=== PATIENT | male | born 1950 | race Hispanic/Latino ===

== ENCOUNTER 2017-07-26 06:35 | Emergency (ER) | payer OTHER ==
[2017-07-26] MEDS ORDERED: MORPHINE SULFATE 8 MG/ML VIAL ONE (07:29)
[2017-07-26] MEDS ORDERED: ONDANSETRON HCL 4 MG/2 ML VIAL ONE (07:29)
[2017-07-26 07:36] LABS: BASOPHILS % (AUTO) 0.3 % (0.0-5.0); EOSINOPHILS % (AUTO) 0.3 % (0.0-8.0); HEMATOCRIT 41.8 % (42-54); LYMPHOCYTES % (AUTO) 2.8 % (21.0-51.0); MEAN CORPUSCULAR HEMOGLOBIN 32.1 pg (27.0-33.0); MEAN CORPUSCULAR HGB CONC 34.4 g/dL (32.0-36.0); MEAN CORPUSCULAR VOLUME 93.4 fL (79-99); MONOCYTES % (AUTO) 6.5 % (3.0-13.0); NEUTROPHILS % (AUTO) 90.1 % (40.0-77.0); PLATELET COUNT (AUTO) 163 K/uL (130-400); RED BLOOD CELL COUNT(AUTO) 4.48 MIL/uL (4.50-6.20); RED CELL DISTRIBUTION WIDTH 12.9 % (11.0-15.5); WHITE BLOOD COUNT (AUTO) 14.8 K/uL (4.8-10.8)
[2017-07-26 07:37] LABS: APPEARANCE,URINE TURBID (CLEAR); BILIRUBIN,URINE NEGATIVE (NEGATIVE); COLOR,URINE YELLOW (YELLOW); GLUCOSE, URINE (UA) 250 mg/dL (NEGATIVE); KETONES,URINE NEGATIVE (NEGATIVE); LEUKOCYTE ESTERASE ,URINE LARGE (NEGATIVE); NITRATE,URINE POSITIVE (NEGATIVE); OCCULT BLOOD,URINE LARGE (NEGATIVE); PROTEIN,URINE 100 (NEGATIVE)
[2017-07-26 07:44] LABS: CREATININE 1.2 mg/dL (0.5-1.5); POTASSIUM 4.1 mmol/L (3.5-5.1)
[2017-07-26 07:45] LABS: BACTERIA,URINE Many /HPF (None Seen); SQUAMOUS EPITHELIAL CELL,UR Rare /LPF (0-2); WBC,URINE TNTC /HPF (0-1)
[2017-07-26 07:50] LABS: BILIRUBIN,TOTAL 2.7 mg/dL (0.2-1.0); TOTAL PROTEIN, SERUM 7.1 g/dL (6.0-8.3)
[2017-07-26] MEDS ORDERED: CEFTRIAXONE SODIUM 1 GM ONE (09:38)
== END 2017-07-26 10:12 | disposition home or self-care (01) ==
LOC: EDH 06:35
DX: N45.1 Epididymitis (principal); N39.0 Urinary tract infection, site not specified; I10 Essential (primary) hypertension; E78.5 Hyperlipidemia, unspecified; E11.9 Type 2 diabetes mellitus without complications; Z98.890 Other specified postprocedural states
CPT/HCPCS: 36415; 76870; 80053; 81001; 84484; 85025; 96374; 96375; 99285; J0696; J2270; J2405

== ENCOUNTER 2018-02-08 06:34 | Day surgery (SDC) | payer OTHER ==
[2018-02-07 11:32] LABS: EOSINOPHILS % (AUTO) 1.5 % (0.0-8.0); HEMATOCRIT 36.1 % (42-54); MEAN CORPUSCULAR HEMOGLOBIN 33.4 pg (27.0-33.0); MEAN CORPUSCULAR VOLUME 95.4 fL (79-99); MONOCYTES % (AUTO) 4.6 % (3.0-13.0); NEUTROPHILS % (AUTO) 80.9 % (40.0-77.0); NUCLEATED RED BLOOD CELLS 0.1 % (0.0-0.19); PLATELET COUNT (AUTO) 313 K/uL (130-400); RED BLOOD CELL COUNT(AUTO) 3.79 MIL/uL (4.50-6.20); RED CELL DISTRIBUTION WIDTH 12.2 % (11.0-15.5); WHITE BLOOD COUNT (AUTO) 8.4 K/uL (4.8-10.8)
[2018-02-07 11:39] LABS: CREATININE 1.5 mg/dL (0.5-1.5); POTASSIUM 4.2 mmol/L (3.5-5.1)
[2018-02-07 11:45] VITALS: BP 140/82
[2018-02-07 11:45] LABS: APPEARANCE,URINE Clear (CLEAR); BILIRUBIN,URINE Negative (NEGATIVE); COLOR,URINE Yellow (YELLOW); GLUCOSE, URINE (UA) Negative (NEGATIVE); KETONES,URINE Negative (NEGATIVE); LEUKOCYTE ESTERASE ,URINE Small (NEGATIVE); NITRATE,URINE Negative (NEGATIVE); OCCULT BLOOD,URINE Negative (NEGATIVE); PROTEIN,URINE POS 2+ (NEGATIVE)
[2018-02-07 11:50] LABS: RBC,URINE 0-1 /HPF (0-1)
[2018-02-07 11:51] LABS: BACTERIA,URINE Rare /HPF (None Seen); SQUAMOUS EPITHELIAL CELL,UR Few /HPF (0-2)
[~2018-02-08] VITALS: Ht 180.3 cm; Wt 90.4 kg
[2018-02-08] VITALS (16 sets, daily range): BP systolic 122–137; BP diastolic 73–87
[~2018-02-08 06:34] MED LIST: ASPI-555 PO; ATOR40TA71 PO; LOSA100T20 PO; METF-805 PO; PANT40TA25 PO; PIOG15TA66 PO; TAMS0.4C32 PO
[2018-02-08] MEDS ORDERED: SODIUM CHLORIDE 0.9% 1000ML 1,000 ML IV ONE (08:42)
[2018-02-08] MEDS ORDERED: LIDOCAINE PF 2% 5ML ABBOJECT ONE (09:07)
[2018-02-08] MEDS ORDERED: ROCURONIUM 10MG/1ML SYR 10 MG/ML ML ONE (09:07)
[2018-02-08] MEDS ORDERED: PROPOFOL 10 MG/ML 20ML VIAL IV ONE (09:07)
[2018-02-08] MEDS ORDERED: FENTANYL CITRATE PF 50 MCG/1 ML 2ML VIAL ONE ×2 (09:08→10:28)
[2018-02-08] MEDS ORDERED: PHENYLEPHRINE HCL 10 MG/ML 1ML VIAL IV ONE (09:35)
[2018-02-08] MEDS ORDERED: SODIUM CHLORIDE 0.9% 10 ML VIAL ONE (09:35)
[2018-02-08] MEDS ORDERED: HEPARIN SODIUM 1000UNIT/ML 10ML VIAL ONE (09:38)
[2018-02-08] MEDS ORDERED: CEFOXITIN SODIUM 1 GM VIAL ONE (09:44)
[2018-02-08] MEDS ORDERED: GLYCOPYRROLATE 1 MG/5 ML SYRINGE ONE (10:43)
[2018-02-08] MEDS ORDERED: MEPERIDINE-PF 25 MG/ML SYG ONE (11:28)
[2018-02-08] MEDS ORDERED: ACETAMINOPHEN-CODEINE 300/30MG TAB ONE (12:36)
== END 2018-02-08 13:25 | disposition home or self-care (01) ==
LOC: DAH 06:34
PROVIDERS: ATTEND Surgery
DX: K80.12 Calculus of gallbladder with acute and chronic cholecystitis without obstruction (principal); K66.0 Peritoneal adhesions (postprocedural) (postinfection); N40.1 Benign prostatic hyperplasia with lower urinary tract symptoms; I25.10 Atherosclerotic heart disease of native coronary artery without angina pectoris; E11.69 Type 2 diabetes mellitus with other specified complication; K76.0 Fatty (change of) liver, not elsewhere classified; E78.00 Pure hypercholesterolemia, unspecified; I13.10 Hypertensive heart and chronic kidney disease without heart failure, with stage 1 through stage 4 chronic kidney disease, or unspecified chronic kidney disease; E11.22 Type 2 diabetes mellitus with diabetic chronic kidney disease; N18.2 Chronic kidney disease, stage 2 (mild); E55.9 Vitamin D deficiency, unspecified; Z95.5 Presence of coronary angioplasty implant and graft; E66.3 Overweight; Z83.3 Family history of diabetes mellitus; Z79.84 Long term (current) use of oral hypoglycemic drugs; Z79.899 Other long term (current) drug therapy; Z98.890 Other specified postprocedural states; Z98.49 Cataract extraction status, unspecified eye
CPT/HCPCS: 36415; 47562; 80048; 81001; 82948 ×2; 85025; 88304; 93005; A4450; A4600; A4930; C1769 ×4; J0694; J1644; J2001; J2175; J2370; J2704; J3010 ×2; J3490; J7030 ×2; J7120

== ENCOUNTER → 2018-09-10 | Outpatient (CLI) | payer OTHER ==
[~2018-09-10] MED LIST changes: -LOSA100T20 PO; +LOSA100T58 PO
[2018-09-10 10:34] LABS: CREATININE 1.3 mg/dL (0.5-1.5); POTASSIUM 5.2 mmol/L (3.5-5.1)
== END | disposition home or self-care (01) ==
LOC: LAB 09:26
PROVIDERS: ATTEND Urology
DX: R31.29 Other microscopic hematuria (principal)
CPT/HCPCS: 36415; 80048

== ENCOUNTER → 2018-09-13 | Outpatient (CLI) | payer OTHER ==
[~2018-09-13] MED LIST changes: +IOHEXOL 350 MG/ML 100ML INFUS..BTL IV ONE
== END | disposition home or self-care (01) ==
LOC: RAH 07:51
PROVIDERS: ATTEND Urology
DX: I71.4 Abdominal aortic aneurysm, without rupture (principal); K80.20 Calculus of gallbladder without cholecystitis without obstruction; K40.90 Unilateral inguinal hernia, without obstruction or gangrene, not specified as recurrent; M47.815 Spondylosis without myelopathy or radiculopathy, thoracolumbar region; K44.9 Diaphragmatic hernia without obstruction or gangrene; N28.1 Cyst of kidney, acquired
CPT/HCPCS: 74178; Q9967

== ENCOUNTER → 2018-11-15 | Outpatient (CLI) | payer OTHER ==
[~2018-11-15] VITALS: Ht 180.3 cm; Wt 85.3 kg
[~2018-11-15] MED LIST changes: -IOHEXOL 350 MG/ML 100ML INFUS..BTL IV ONE; +REGADENOSON 0.4 MG/5 ML PF SYG IVP SCH
== END | disposition home or self-care (01) ==
LOC: SHCH 08:47
PROVIDERS: ATTEND Internal Medicine Cardiovascular Disease
DX: I25.10 Atherosclerotic heart disease of native coronary artery without angina pectoris (principal)
CPT/HCPCS: 78452; 93017; 96374; A9500 ×2; J2785

== ENCOUNTER 2020-06-12 23:26 | Inpatient (IN) | payer OTHER ==
[~2020-06-12] VITALS: Ht 177.8 cm; Wt 90.9 kg
[~2020-06-12 23:26] MED LIST changes: -ASPI-555 PO; +ASPI-556 PO; -METF-805 PO; +METF-890 PO; -PANT40TA25 PO; +PANT40TA54 PO; -REGADENOSON 0.4 MG/5 ML PF SYG IVP SCH
[2020-06-12] MEDS ORDERED: AZITHROMYCIN 500MG+NS 250ML 250 ML IV ONE (23:34)
[2020-06-12] MEDS ORDERED: CEFTRIAXONE 1G VIAL ONE (23:34)
[2020-06-12 23:54] LABS: BASOPHILS % (AUTO) 0.5 % (0.0-5.0); HEMATOCRIT 36.4 % (42-54); LYMPHOCYTES % (AUTO) 10.7 % (21.0-51.0); MEAN CORPUSCULAR HEMOGLOBIN 32.9 pg (27.0-33.0); MEAN CORPUSCULAR VOLUME 91.5 fL (79-99); MONOCYTES % (AUTO) 6.8 % (3.0-13.0); NEUTROPHILS % (AUTO) 76.4 % (40.0-77.0); PLATELET COUNT (AUTO) 188 K/uL (130-400); RED BLOOD CELL COUNT(AUTO) 3.98 MIL/uL (4.50-6.20); RED CELL DISTRIBUTION WIDTH 12.2 % (11.0-15.5); WHITE BLOOD COUNT (AUTO) 5.6 K/uL (4.8-10.8)
[2020-06-12 23:55] LABS: ABG HCO3 20.4 mmol/L (21.0-28.0); ABG OXYGEN SATURATION 88.1 % (95.0-99.0); ABG PCO2 32 mmHg (35-48)
[2020-06-13 00:05] LABS: INR 0.99 (0.85-1.15); PROTHROMBIN TIME 10.6 SEC (9.6-11.6)
[2020-06-13 00:06] LABS: CARBON DIOXIDE 25 mmol/L (21-32); CHLORIDE 102 mmol/L (101-111); CREATININE 1.3 mg/dL (0.5-1.5); GLOMERULAR FILTR. RATE CALC 58 mL/min (>60); GLUCOSE,RANDOM 143 mg/dL (70-105); PARTIAL THROMBOPLASTIN TIME 28.9 SEC (26.3-35.5); POTASSIUM 3.5 mmol/L (3.5-5.1); SODIUM SERUM 139 mmol/L (136-145); UREA NITROGEN, BLOOD 17 mg/dL (7-18)
[2020-06-13 00:16] LABS: ALANINE AMINOTRANSFERASE 49 U/L (12-78); ALBUMIN 2.7 g/dL (3.5-5.0); ASPARTATE AMINOTRANSFERASE 79 U/L (10-37); CREATINE KINASE, TOTAL 51 U/L (21-232); LIPASE 390 U/L (114-286); MYOGLOBIN 62 ng/mL (10-92); TOTAL PROTEIN, SERUM 7.6 g/dL (6.0-8.3); TROPONIN I < 0.04 ng/mL (0.00-0.06)
[2020-06-13] MEDS ORDERED: IOHEXOL-350 75 ML VIAL IV ONE (02:05)
[2020-06-13] MEDS ORDERED: DEXAMETHASONE SOD PHOSPHATE 10MG/ML 1ML VIAL ONE (02:10)
[2020-06-13 03:36] LABS: APPEARANCE,URINE Clear (CLEAR); BILIRUBIN,URINE Negative (NEGATIVE); COLOR,URINE Yellow (YELLOW); GLUCOSE, URINE (UA) Negative (NEGATIVE); KETONES,URINE Negative (NEGATIVE); LEUKOCYTE ESTERASE ,URINE Trace (NEGATIVE); NITRATE,URINE Negative (NEGATIVE); OCCULT BLOOD,URINE Negative (NEGATIVE); PROTEIN,URINE 300 mg/dL (NEGATIVE)
[2020-06-13 04:10] LABS: BACTERIA,URINE Rare /HPF (None Seen); HYALINE CASTS, URINE 0-1 /LPF (0-1 /LPF); RBC,URINE 0-1 /HPF (0-1); SQUAMOUS EPITHELIAL CELL,UR 0-2 /HPF (0-2); WBC,URINE 0-1 /HPF (0-1)
[2020-06-13] MEDS ORDERED: ACETAMINOPHEN 325 MG TAB PO PRN (04:15)
[2020-06-13] MEDS ORDERED: ONDANSETRON 4MG INJ IVP PRN (04:15)
[2020-06-13] MEDS ORDERED: DEXAMETHASONE 4 MG TAB ONE (08:17)
[2020-06-13] MEDS ORDERED: DEXAMETHASONE 4 MG TAB PO SCH (09:00)
[2020-06-13] MEDS ORDERED: CEFTRIAXONE 1G VIAL ONE (20:26)
[2020-06-13] MEDS ORDERED: AZITHROMYCIN 500MG+NS 250ML 250 ML IV ONE (20:26)
[2020-06-13] MEDS: AZITHROMYCIN 500MG+NS 250ML 250 ML IV SCH (21:00)
[2020-06-13] MEDS ORDERED: CEFTRIAXONE 1G VIAL IVP SCH (21:00)
[2020-06-14] MEDS ORDERED: DEXAMETHASONE SOD PHOSPHATE 10MG/ML 1ML VIAL ONE (07:45)
[2020-06-14] MEDS ORDERED: ACETAMINOPHEN 650 MG SUPPOSITORY RC PRN (08:15)
[2020-06-14] MEDS ORDERED: ACETAMINOPHEN 325 MG TAB PO PRN (08:15)
[2020-06-14] MEDS ORDERED: PHARMACY COMMUNICATION MISC SCH (08:15)
[2020-06-14] MEDS ORDERED: TRAMADOL HCL 50 MG TABLET PO PRN (08:15)
[2020-06-14] MEDS ORDERED: CLONIDINE HCL 0.1 MG TABLET PO PRN (08:15)
[2020-06-14] MEDS ORDERED: TEMAZEPAM 15 MG CAPSULE PO PRN (08:15)
[2020-06-14] MEDS ORDERED: ALBUTEROL INHALER 90MCG/INH IH PRN (08:15)
[2020-06-14] MEDS ORDERED: LABETALOL 20MG SYG IV PRN (08:15)
[2020-06-14] MEDS ORDERED: LACTULOSE 20 GM/30 ML UDCUP PO PRN (08:15)
[2020-06-14 08:39] LABS: HEMATOCRIT 31.3 % (42-54); MEAN CORPUSCULAR HEMOGLOBIN 32.7 pg (27.0-33.0); MEAN CORPUSCULAR HGB CONC 35.8 g/dL (32.0-36.0); MEAN CORPUSCULAR VOLUME 91.5 fL (79-99); RED BLOOD CELL COUNT(AUTO) 3.42 MIL/uL (4.50-6.20); RED CELL DISTRIBUTION WIDTH 12.2 % (11.0-15.5); WHITE BLOOD COUNT (AUTO) 8.5 K/uL (4.8-10.8)
[2020-06-14 08:44] LABS: CREATININE 1.5 mg/dL (0.5-1.5); POTASSIUM 3.6 mmol/L (3.5-5.1)
[2020-06-14 08:59] LABS: CREATINE KINASE, TOTAL 41 U/L (21-232); MYOGLOBIN 81 ng/mL (10-92); TROPONIN I < 0.04 ng/mL (0.00-0.06)
[2020-06-14] MEDS ORDERED: AZITHROMYCIN 500MG+NS 250ML IV SCH (09:00)
[2020-06-14] MEDS: CEFTRIAXONE 1G VIAL IVP SCH (09:00)
[2020-06-14] MEDS: DEXAMETHASONE SOD PHOSPHATE 10MG/ML 1ML VIAL IVP SCH (09:00)
[2020-06-14] MEDS: ASPIRIN 81MG CHEW TAB PO SCH (09:00)
[2020-06-14] MEDS: ENOXAPARIN SODIUM 40 MG/0.4 ML SYRINGE SQ SCH (09:00)
[2020-06-14] MEDS ORDERED: ENOXAPARIN SODIUM 40 MG/0.4 ML SYRINGE SQ ONE (09:09)
[2020-06-14] MEDS ORDERED: ASPIRIN 81MG CHEW TAB ONE (09:09)
[2020-06-14] MEDS ORDERED: CEFTRIAXONE 1G VIAL ONE (09:09)
[2020-06-14] MEDS ORDERED: AZITHROMYCIN 500MG+NS 250ML 250 ML IV ONE ×2 (09:09→21:42)
[2020-06-14 09:44] LABS: ALBUMIN 2.3 g/dL (3.5-5.0); BILIRUBIN,DIRECT 0.2 mg/dL (0.0-0.3); BILIRUBIN,TOTAL 0.5 mg/dL (0.2-1.0); TOTAL PROTEIN, SERUM 6.5 g/dL (6.0-8.3)
[2020-06-14] MEDS: INSULIN HUMULIN R 100 UNIT/ML 3ML SQ SCH ×3 (11:30→21:00)
[2020-06-14] MEDS ORDERED: INSULIN HUMULIN R 100 UNIT/ML 3ML ONE ×2 (12:47→16:43)
[2020-06-14 14:54] LABS: CREATINE KINASE, TOTAL 38 U/L (21-232); MYOGLOBIN 75 ng/mL (10-92); TROPONIN I < 0.04 ng/mL (0.00-0.06)
[2020-06-14] MEDS ORDERED: REMDESIVIR (EUA) 520 200 MG in 0.9% NACL 250ML 250 ML IV ONE (15:00)
[2020-06-14] MEDS ORDERED: COMPOUND IV REFRIGERATED 1 EACH IVSOLN MISC PRN (15:00)
[2020-06-14 20:34] LABS: CREATINE KINASE, TOTAL 40 U/L (21-232); MYOGLOBIN 69 ng/mL (10-92); TROPONIN I < 0.04 ng/mL (0.00-0.06)
[2020-06-14] MEDS: AZITHROMYCIN 500MG+NS 250ML 250 ML IV SCH (21:00)
[2020-06-15] MEDS: REMDESIVIR LABS MISC SCH (06:00)
[2020-06-15 06:22] LABS: BASOPHILS % (AUTO) 0.2 % (0.0-5.0); EOSINOPHILS % (AUTO) 0.4 % (0.0-8.0); HEMATOCRIT 29.2 % (42-54); LYMPHOCYTES % (AUTO) 6.8 % (21.0-51.0); MEAN CORPUSCULAR HEMOGLOBIN 32.5 pg (27.0-33.0); MEAN CORPUSCULAR VOLUME 90.4 fL (79-99); MONOCYTES % (AUTO) 6.2 % (3.0-13.0); NEUTROPHILS % (AUTO) 81.5 % (40.0-77.0); PLATELET COUNT (AUTO) 225 K/uL (130-400); RED BLOOD CELL COUNT(AUTO) 3.23 MIL/uL (4.50-6.20); RED CELL DISTRIBUTION WIDTH 11.9 % (11.0-15.5); WHITE BLOOD COUNT (AUTO) 9.7 K/uL (4.8-10.8)
[2020-06-15 06:38] LABS: CREATININE 1.2 mg/dL (0.5-1.5); POTASSIUM 3.3 mmol/L (3.5-5.1)
[2020-06-15] MEDS: INSULIN HUMULIN R 100 UNIT/ML 3ML SQ SCH ×4 (07:30→21:00)
[2020-06-15] MEDS ORDERED: AMLO-257 PO (08:23)
[2020-06-15] MEDS ORDERED: SILD20TA14 PO (08:23)
[2020-06-15] MEDS ORDERED: GLYC2TAB21 PO (08:23)
[2020-06-15] MEDS ORDERED: METO25TA6 PO (08:23)
[2020-06-15] MEDS ORDERED: ASPIRIN 81MG CHEW TAB ONE (08:24)
[2020-06-15] MEDS ORDERED: DEXAMETHASONE SOD PHOSPHATE 10MG/ML 1ML VIAL ONE (08:24)
[2020-06-15] MEDS ORDERED: ENOXAPARIN SODIUM 40 MG/0.4 ML SYRINGE SQ ONE (08:25)
[2020-06-15] MEDS ORDERED: CEFTRIAXONE 1G VIAL ONE (08:25)
[2020-06-15] MEDS ORDERED: INSULIN HUMULIN R 100 UNIT/ML 3ML ONE ×4 (08:25→22:42)
[2020-06-15] MEDS: CEFTRIAXONE 1G VIAL IVP SCH (09:00)
[2020-06-15] MEDS: ASPIRIN 81MG CHEW TAB PO SCH (09:00)
[2020-06-15] MEDS: DEXAMETHASONE SOD PHOSPHATE 10MG/ML 1ML VIAL IVP SCH (09:00)
[2020-06-15] MEDS: ENOXAPARIN SODIUM 40 MG/0.4 ML SYRINGE SQ SCH (09:00)
[2020-06-15] MEDS ORDERED: AZITHROMYCIN 500MG+NS 250ML 250 ML IV SCH (09:00)
[2020-06-15 10:08] LABS: ALBUMIN 2.2 g/dL (3.5-5.0); BILIRUBIN,DIRECT 0.1 mg/dL (0.0-0.3); BILIRUBIN,TOTAL 0.4 mg/dL (0.2-1.0); TOTAL PROTEIN, SERUM 6.4 g/dL (6.0-8.3)
[2020-06-15] MEDS: REMDESIVIR (EUA) 520 100 MG in 0.9% NACL 250ML 250 ML IV SCH (15:00)
[2020-06-15] MEDS: AZITHROMYCIN 500MG+NS 250ML 250 ML IV SCH (21:00)
[2020-06-16 04:34] LABS: HEMATOCRIT 33.1 % (42-54); MEAN CORPUSCULAR HEMOGLOBIN 32.2 pg (27.0-33.0); MEAN CORPUSCULAR HGB CONC 35.6 g/dL (32.0-36.0); MEAN CORPUSCULAR VOLUME 90.4 fL (79-99); NUCLEATED RED BLOOD CELLS 0.2 % (0.0-0.19); RED BLOOD CELL COUNT(AUTO) 3.66 MIL/uL (4.50-6.20); RED CELL DISTRIBUTION WIDTH 11.8 % (11.0-15.5); WHITE BLOOD COUNT (AUTO) 9.7 K/uL (4.8-10.8)
[2020-06-16 04:57] LABS: CREATININE 1.3 mg/dL (0.5-1.5); MAGNESIUM 1.4 mg/dL (1.80-2.40); PHOSPHORUS 3.5 mg/dL (2.5-4.9); POTASSIUM 3.6 mmol/L (3.5-5.1)
[2020-06-16 05:50] VITALS: BP 174/80
[2020-06-16] MEDS: REMDESIVIR LABS MISC SCH (06:00)
[2020-06-16] MEDS: INSULIN HUMULIN R 100 UNIT/ML 3ML SQ SCH ×4 (07:30→21:00)
[2020-06-16] MEDS: ASPIRIN 81MG CHEW TAB PO SCH (09:00)
[2020-06-16] MEDS: CEFTRIAXONE 1G VIAL IVP SCH (09:00)
[2020-06-16] MEDS: DEXAMETHASONE SOD PHOSPHATE 10MG/ML 1ML VIAL IVP SCH (09:00)
[2020-06-16] MEDS: ENOXAPARIN SODIUM 40 MG/0.4 ML SYRINGE SQ SCH (09:00)
[2020-06-16 09:07] VITALS: BP 156/89
[2020-06-16 13:02] VITALS: BP 159/91
[2020-06-16 13:09] LABS: ALBUMIN 2.3 g/dL (3.5-5.0); BILIRUBIN,DIRECT 0.1 mg/dL (0.0-0.3); BILIRUBIN,TOTAL 0.4 mg/dL (0.2-1.0); TOTAL PROTEIN, SERUM 6.8 g/dL (6.0-8.3)
[2020-06-16] MEDS: REMDESIVIR (EUA) 520 100 MG in 0.9% NACL 250ML 250 ML IV SCH (15:27)
[2020-06-16 16:20] VITALS: BP 151/91
[2020-06-16 19:00] VITALS: BP 145/94
[2020-06-16] MEDS: AZITHROMYCIN 500MG+NS 250ML 250 ML IV SCH (21:24)
[2020-06-17] VITALS: BP 152/85
[2020-06-17 04:00] VITALS: BP 133/75
[2020-06-17] MEDS: REMDESIVIR LABS MISC SCH (06:00)
[2020-06-17 07:10] LABS: ALBUMIN 1.9 g/dL (3.5-5.0); BILIRUBIN,DIRECT 0.1 mg/dL (0.0-0.3); BILIRUBIN,TOTAL 0.4 mg/dL (0.2-1.0); TOTAL PROTEIN, SERUM 6.1 g/dL (6.0-8.3)
[2020-06-17] MEDS: INSULIN HUMULIN R 100 UNIT/ML 3ML SQ SCH ×4 (07:30→21:34)
[2020-06-17] MEDS: CEFTRIAXONE 1G VIAL IVP SCH (09:54)
[2020-06-17] MEDS: ASPIRIN 81MG CHEW TAB PO SCH (09:54)
[2020-06-17] MEDS: DEXAMETHASONE SOD PHOSPHATE 10MG/ML 1ML VIAL IVP SCH (09:55)
[2020-06-17] MEDS: ENOXAPARIN SODIUM 40 MG/0.4 ML SYRINGE SQ SCH (09:55)
[2020-06-17 12:00] VITALS: BP 147/70
[2020-06-17] MEDS: REMDESIVIR (EUA) 520 100 MG in 0.9% NACL 250ML 250 ML IV SCH (14:43)
[2020-06-17 18:45] VITALS: BP 138/67
[2020-06-17 21:00] VITALS: BP 141/72
[2020-06-17] MEDS: AZITHROMYCIN 500MG+NS 250ML 250 ML IV SCH (21:34)
[2020-06-18] VITALS: BP 118/57
[2020-06-18 03:47] VITALS: BP 123/70
[2020-06-18] MEDS: REMDESIVIR LABS MISC SCH (06:00)
[2020-06-18] MEDS: INSULIN HUMULIN R 100 UNIT/ML 3ML SQ SCH ×4 (07:19→21:31)
[2020-06-18] MEDS: ASPIRIN 81MG CHEW TAB PO SCH (08:33)
[2020-06-18] MEDS: CEFTRIAXONE 1G VIAL IVP SCH (08:33)
[2020-06-18] MEDS: DEXAMETHASONE SOD PHOSPHATE 10MG/ML 1ML VIAL IVP SCH (08:34)
[2020-06-18] MEDS: ENOXAPARIN SODIUM 40 MG/0.4 ML SYRINGE SQ SCH (09:13)
[2020-06-18 11:37] LABS: ALBUMIN 2.2 g/dL (3.5-5.0); BILIRUBIN,DIRECT 0.1 mg/dL (0.0-0.3); BILIRUBIN,TOTAL 0.4 mg/dL (0.2-1.0); CREATININE 1.4 mg/dL (0.5-1.5); POTASSIUM 3.5 mmol/L (3.5-5.1); TOTAL PROTEIN, SERUM 6.2 g/dL (6.0-8.3)
[2020-06-18 12:18] VITALS: BP 148/77
[2020-06-18] MEDS: REMDESIVIR (EUA) 520 100 MG in 0.9% NACL 250ML 250 ML IV SCH (14:48)
[2020-06-18 20:00] VITALS: BP 152/81
[2020-06-18] MEDS: AZITHROMYCIN 500MG+NS 250ML 250 ML IV SCH (21:33)
[2020-06-19] VITALS: BP 123/69
[2020-06-19 04:00] VITALS: BP 163/94
[2020-06-19 04:06] LABS: HEMATOCRIT 30.6 % (42-54); MEAN CORPUSCULAR VOLUME 91.6 fL (79-99); NUCLEATED RED BLOOD CELLS 0.4 % (0.0-0.19); PLATELET COUNT (AUTO) 309 K/uL (130-400); RED BLOOD CELL COUNT(AUTO) 3.34 MIL/uL (4.50-6.20); RED CELL DISTRIBUTION WIDTH 12.2 % (11.0-15.5); WHITE BLOOD COUNT (AUTO) 9.8 K/uL (4.8-10.8)
[2020-06-19 04:17] LABS: CREATININE 1.3 mg/dL (0.5-1.5); POTASSIUM 3.7 mmol/L (3.5-5.1)
[2020-06-19 05:00] VITALS: BP 151/86
[2020-06-19 05:40] LABS: BAND NEUTROPHILS % (MANUAL) 1 % (0-2); LYMPHOCYTES % (MANUAL) 12 % (22-44); MAN.DIFF COMMENT-IMPRESSION MANUAL DIFFERENTIAL; METAMYELOCYTES % 1 % (0-0); MONOCYTES % (MANUAL) 7 % (2-9); SEGMENTED NEUTROPHILS % 79 % (40-70)
[2020-06-19 05:41] LABS: PLATELET MORPHOLOGY COMMENT ADEQUATE
[2020-06-19] MEDS: INSULIN HUMULIN R 100 UNIT/ML 3ML SQ SCH ×2 (06:23→11:49)
[2020-06-19 08:41] VITALS: BP 151/78
[2020-06-19] MEDS: DEXAMETHASONE SOD PHOSPHATE 10MG/ML 1ML VIAL IVP SCH (10:15)
[2020-06-19] MEDS: ASPIRIN 81MG CHEW TAB PO SCH (10:19)
[2020-06-19] MEDS: CEFTRIAXONE 1G VIAL IVP SCH (10:19)
[2020-06-19] MEDS: ENOXAPARIN SODIUM 40 MG/0.4 ML SYRINGE SQ SCH (10:54)
[2020-06-19 12:00] VITALS: BP 168/72
[2020-06-19 16:00] VITALS: BP 166/90
[2020-06-19] MEDS ORDERED: METFORMIN HCL 500 MG TABLET PO SCH (17:00)
[2020-06-19] MEDS ORDERED: GLYCOPYRROLATE 2 MG PO SCH (21:00)
[2020-06-19] MEDS ORDERED: SILDENAFIL CITRATE 20 MG TABLET PO SCH (21:00)
[2020-06-19] MEDS ORDERED: METOPROLOL TARTRATE 25 MG TAB PO SCH (21:00)
[2020-06-20] MEDS ORDERED: ATORVASTATIN 40 MG TABLET PO SCH (09:00)
[2020-06-20] MEDS ORDERED: ASPIRIN 81 MG EC TAB PO SCH (09:00)
[2020-06-20] MEDS ORDERED: AMLODIPINE 5 MG TAB PO SCH (09:00)
[2020-06-20] MEDS ORDERED: LOSARTAN 100 MG TABLET PO SCH (09:00)
[2020-06-20] MEDS ORDERED: PIOGLITAZONE 15MG TAB PO SCH (09:00)
== END 2020-06-19 16:30 | disposition home or self-care (01) | DRG 177 ==
LOC: EDH 23:26 → OBSVTOIN 06-13 01:30 → EDHIP 06-13 01:30 → 4AH 06-16 04:36
PROVIDERS: ADMIT Internal Medicine Critical Care Medicine; ATTEND Internal Medicine Critical Care Medicine
PROC: XW033E5 Introduction of Remdesivir Anti-infective into Peripheral Vein, Percutaneous Approach, New Technology Group 5 (ICD-10-PCS; principal; 2020-06-14)
DX: U07.1 COVID-19 (principal); J96.01 Acute respiratory failure with hypoxia; J18.8 Other pneumonia, unspecified organism; I10 Essential (primary) hypertension; E11.9 Type 2 diabetes mellitus without complications; E78.5 Hyperlipidemia, unspecified; I25.10 Atherosclerotic heart disease of native coronary artery without angina pectoris; Z79.82 Long term (current) use of aspirin; Z79.84 Long term (current) use of oral hypoglycemic drugs; Z95.5 Presence of coronary angioplasty implant and graft; Z79.899 Other long term (current) drug therapy
CPT/HCPCS: 36415; 71045; 71275; 80048; 80053; 80076; 81001; 82550; 82803; 82948; 83605; 83690; 83735; 83874; 83880; 84100; 84145; 84484; 85025; 85027; 85378; 85610; 85730; 86140; 86900; 86901; 87040; 87088; 87426; 87804; 93005; 94760; 99291; G0378; J0456; J0696; J1100; J1650; J1815; J7050; J8540; Q9967

== ENCOUNTER 2022-04-18 09:16 | Inpatient (IN) | payer OTHER ==
[~2022-04-18] VITALS: Ht 177.8 cm; Wt 86.2 kg
[~2022-04-18 09:16] MED LIST changes: +AMLO-257 PO; +GLYC2TAB21 PO; +METO25TA6 PO; -PANT40TA54 PO; +SILD20TA14 PO; -TAMS0.4C32 PO
[2022-04-18 10:00] LABS: BASOPHILS % (AUTO) 0.1 % (0.0-5.0); LYMPHOCYTES % (AUTO) 5.6 % (21.0-51.0); MEAN CORPUSCULAR HGB CONC 34.6 g/dL (32.0-36.0); MEAN CORPUSCULAR VOLUME 89.5 fL (79-99); MONOCYTES % (AUTO) 5.4 % (3.0-13.0); NEUTROPHILS % (AUTO) 87.5 % (40.0-77.0); PLATELET COUNT (AUTO) 141 K/uL (130-400); RED BLOOD CELL COUNT(AUTO) 4.58 MIL/uL (4.50-6.20); RED CELL DISTRIBUTION WIDTH 12.8 % (11.0-15.5); WHITE BLOOD COUNT (AUTO) 8.3 K/uL (4.8-10.8)
[2022-04-18 10:23] LABS: ALBUMIN 3.2 g/dL (3.5-5.0); CREATININE 2.6 mg/dL (0.5-1.5); POTASSIUM 4.4 mmol/L (3.5-5.1); TOTAL PROTEIN, SERUM 7.2 g/dL (6.0-8.3)
[2022-04-18 10:45] LABS: APPEARANCE,URINE TURBID (CLEAR); BILIRUBIN,URINE NEGATIVE (NEGATIVE); COLOR,URINE YELLOW (YELLOW); GLUCOSE, URINE (UA) 150 mg/dL (NEGATIVE); KETONES,URINE NEGATIVE (NEGATIVE); LEUKOCYTE ESTERASE ,URINE 500 Leu/uL (NEGATIVE); NITRATE,URINE NEGATIVE (NEGATIVE); PH,URINE 5.5 (5.0-8.0); PROTEIN,URINE 300 mg/dL (NEGATIVE); UROBILINOGEN,URINE 0.2 mg/dL (0.2-1.0)
[2022-04-18] MEDS ORDERED: MORPHINE 2 MG SYG IVP ONE (11:00)
[2022-04-18] MEDS ORDERED: ONDANSETRON 4MG INJ IVP ONE (11:00)
[2022-04-18 11:17] LABS: BACTERIA,URINE MOD /HPF (None Seen); MUCUS,URINE RARE LPF (None Seen); OTHER CASTS, URINE 5 /LPF (None Seen); SQUAMOUS EPITHELIAL CELL,UR RARE /HPF (0-2); WBC,URINE >100 /HPF (0-1)
[2022-04-18] MEDS ORDERED: GLUCAGON 1MG KIT 1 MG ML IM PRN (11:30)
[2022-04-18] MEDS ORDERED: POTASSIUM CHLORIDE 10% ELIXIR 20 MEQ/15 ML UDCUP PO PRN (11:30)
[2022-04-18] MEDS ORDERED: KCL 20 MEQ ERTAB PO PRN (11:30)
[2022-04-18] MEDS ORDERED: LIDOCAINE HCL-MPF 1% 2ML VIAL IV PRN ×2 (11:30)
[2022-04-18] MEDS ORDERED: DEXTROSE 50%-WATER 50 ML DISP.SYRIN IV PRN (11:30)
[2022-04-18] MEDS ORDERED: ALBUTEROL 0.083% 2.5 MG/3 ML INH IH PRN (11:30)
[2022-04-18] MEDS ORDERED: ACETAMINOPHEN 325 MG TAB PO PRN (11:30)
[2022-04-18] MEDS ORDERED: ACETAMINOPHEN 650 MG SUPPOSITORY RC PRN (11:30)
[2022-04-18] MEDS ORDERED: POTASSIUM CHLORIDE 20MEQ/100ML 100 ML IV PRN ×2 (11:30)
[2022-04-18] MEDS ORDERED: 0.9%NACL 1000ML 1,000 ML IV ONE ×2 (11:30)
[2022-04-18] MEDS: ZOSYN 3.375GM +NS 50ML IV SCH ×2 (12:14→21:11)
[2022-04-18] MEDS: LACTATED RINGERS 1000ML 1,000 ML IV SCH ×3 (12:16→21:30)
[2022-04-18] MEDS ORDERED: MORPHINE 4 MG SYG ONE (12:30)
[2022-04-18] MEDS ORDERED: NICARDIPINE 25MG INJ 25 MG in 0.9% NACL 250ML 240 ML IV SCH (12:30)
[2022-04-18] MEDS ORDERED: MORPHINE 4 MG SYG IVP ONE (12:30)
[2022-04-18] MEDS ORDERED: GADOTERATE MEGLUMINE 10 MMOL/20 ML VIAL IV ONE (13:30)
[2022-04-18] MEDS ORDERED: MORPHINE 2 MG SYG IVP PRN (14:00)
[2022-04-18] MEDS ORDERED: MORPHINE 4 MG SYG IVP PRN (14:00)
[2022-04-18] MEDS: METOPROLOL TARTRATE 1 MG/ML 5ML VIAL IV SCH ×2 (14:45→21:12)
[2022-04-18] MEDS ORDERED: NICARDIPINE 50 MG in 0.9% NACL 250ML IV SCH (15:00)
[2022-04-18 17:26] VITALS: BP 140/90
[2022-04-18 17:30] VITALS: BP 141/92
[2022-04-18 21:50] VITALS: BP 145/72
[2022-04-18 22:01] VITALS: BP 144/81
[2022-04-18 22:16] VITALS: BP 139/68
[2022-04-18 22:31] VITALS: BP 138/67
[2022-04-19] VITALS (46 sets, daily range): BP systolic 103–156; BP diastolic 45–86
[2022-04-19] MEDS: METOPROLOL TARTRATE 1 MG/ML 5ML VIAL IV SCH (02:00)
[2022-04-19] MEDS: LACTATED RINGERS 1000ML 1,000 ML IV SCH ×3 (02:25→17:57)
[2022-04-19 03:49] LABS: BASOPHILS % (AUTO) 0.1 % (0.0-5.0); EOSINOPHILS % (AUTO) 0.9 % (0.0-8.0); HEMATOCRIT 35.1 % (42-54); LYMPHOCYTES % (AUTO) 7.5 % (21.0-51.0); MEAN CORPUSCULAR VOLUME 88.4 fL (79-99); MONOCYTES % (AUTO) 8.3 % (3.0-13.0); NEUTROPHILS % (AUTO) 82.9 % (40.0-77.0); PLATELET COUNT (AUTO) 144 K/uL (130-400); RED BLOOD CELL COUNT(AUTO) 3.97 MIL/uL (4.50-6.20); RED CELL DISTRIBUTION WIDTH 12.6 % (11.0-15.5)
[2022-04-19 03:56] LABS: HEMOGLOBIN A1C 7.4 % (4.0-6.0)
[2022-04-19 04:02] LABS: CREATININE 2.4 mg/dL (0.5-1.5); MAGNESIUM 1.3 mg/dL (1.80-2.40); PHOSPHORUS 2.5 mg/dL (2.5-4.9); POTASSIUM 4.1 mmol/L (3.5-5.1)
[2022-04-19] MEDS: ZOSYN 3.375GM +NS 50ML IV SCH ×2 (08:42→21:44)
[2022-04-19] MEDS: PANTOPRAZOLE 40 MG/VIAL IVP SCH (08:42)
[2022-04-19] MEDS: METOPROLOL TARTRATE 25 MG TAB PO SCH ×2 (08:43→21:46)
[2022-04-19] MEDS: AMLODIPINE 5 MG TAB PO SCH (08:43)
[2022-04-19 08:47] LABS: INR 1.05 (0.85-1.15); PROTHROMBIN TIME 11.4 SEC (9.6-11.6)
[2022-04-19 08:49] LABS: PARTIAL THROMBOPLASTIN TIME 28.8 SEC (26.3-35.5)
[2022-04-19] MEDS: ENOXAPARIN SODIUM 30 MG/0.3 ML SQ SCH (09:00)
[2022-04-19] MEDS ORDERED: AMLODIPINE 5 MG TAB PO SCH (09:00)
[2022-04-19] MEDS ORDERED: ENOXAPARIN SODIUM 30 MG/0.3 ML SQ SCH (09:00)
[2022-04-19] MEDS ORDERED: ENOXAPARIN SODIUM 40 MG/0.4 ML SYRINGE SQ SCH (09:00)
[2022-04-19] MEDS ORDERED: IOHEXOL-350 50ML VIAL IV ONE (10:57)
[2022-04-19] MEDS ORDERED: MIDAZOLAM HCL 1 MG/ML 2ML VIAL ONE (13:08)
[2022-04-19] MEDS ORDERED: PROPOFOL 10 MG/ML 20ML VIAL IV ONE (13:08)
[2022-04-19] MEDS ORDERED: FENTANYL CITRATE PF 50 MCG/1 ML 2ML VIAL ONE (13:08)
[2022-04-19] MEDS ORDERED: SUCCINYLCHOLINE 200MG/10ML SYR ONE (13:11)
[2022-04-19] MEDS ORDERED: ONDANSETRON 4MG INJ ONE (14:17)
[2022-04-20 04:00] VITALS: BP 151/80
[2022-04-20 05:06] LABS: BASOPHILS % (AUTO) 0.1 % (0.0-5.0); EOSINOPHILS % (AUTO) 1.8 % (0.0-8.0); HEMATOCRIT 33.4 % (42-54); LYMPHOCYTES % (AUTO) 6.9 % (21.0-51.0); MEAN CORPUSCULAR HEMOGLOBIN 30.9 pg (27.0-33.0); MEAN CORPUSCULAR HGB CONC 34.7 g/dL (32.0-36.0); MEAN CORPUSCULAR VOLUME 89.1 fL (79-99); MONOCYTES % (AUTO) 6.7 % (3.0-13.0); NEUTROPHILS % (AUTO) 83.4 % (40.0-77.0); PLATELET COUNT (AUTO) 143 K/uL (130-400); RED BLOOD CELL COUNT(AUTO) 3.75 MIL/uL (4.50-6.20); RED CELL DISTRIBUTION WIDTH 12.6 % (11.0-15.5); WHITE BLOOD COUNT (AUTO) 8.2 K/uL (4.8-10.8)
[2022-04-20 05:20] LABS: ALBUMIN 2.2 g/dL (3.5-5.0); CREATININE 2.4 mg/dL (0.5-1.5); POTASSIUM 3.9 mmol/L (3.5-5.1); TOTAL PROTEIN, SERUM 5.6 g/dL (6.0-8.3)
[2022-04-20] MEDS: LACTATED RINGERS 1000ML 1,000 ML IV SCH (05:37)
[2022-04-20 08:00] VITALS: BP 141/74
[2022-04-20] MEDS: PANTOPRAZOLE 40 MG/VIAL IVP SCH (09:17)
[2022-04-20] MEDS: ZOSYN 3.375GM +NS 50ML IV SCH ×2 (09:17→22:23)
[2022-04-20] MEDS: METOPROLOL TARTRATE 25 MG TAB PO SCH ×2 (09:18→22:24)
[2022-04-20] MEDS: AMLODIPINE 5 MG TAB PO SCH (09:18)
[2022-04-20] MEDS: ENOXAPARIN SODIUM 30 MG/0.3 ML SQ SCH (09:18)
[2022-04-20 12:02] VITALS: BP 159/76
[2022-04-20 19:00] VITALS: BP 152/82
[2022-04-20 19:05] VITALS: BP 161/82
[2022-04-20 23:29] VITALS: BP 145/81
[2022-04-21 03:59] VITALS: BP 132/62
[2022-04-21 07:30] VITALS: BP 157/84
[2022-04-21] MEDS: ZOSYN 3.375GM +NS 50ML IV SCH ×2 (08:59→20:33)
[2022-04-21] MEDS: METOPROLOL TARTRATE 25 MG TAB PO SCH ×2 (08:59→20:33)
[2022-04-21] MEDS: PANTOPRAZOLE 40 MG/VIAL IVP SCH (08:59)
[2022-04-21] MEDS: AMLODIPINE 5 MG TAB PO SCH (08:59)
[2022-04-21] MEDS: ENOXAPARIN SODIUM 30 MG/0.3 ML SQ SCH (09:00)
[2022-04-21 11:00] VITALS: BP 157/77
[2022-04-21 16:00] VITALS: BP 150/81
[2022-04-21 20:00] VITALS: BP 156/88
[2022-04-22] VITALS: BP 133/66
[2022-04-22 04:00] VITALS: BP 148/90
[2022-04-22 06:15] LABS: HEMATOCRIT 35.3 % (42-54); MEAN CORPUSCULAR HEMOGLOBIN 30.8 pg (27.0-33.0); MEAN CORPUSCULAR HGB CONC 34.3 g/dL (32.0-36.0); MEAN CORPUSCULAR VOLUME 89.8 fL (79-99); RED BLOOD CELL COUNT(AUTO) 3.93 MIL/uL (4.50-6.20); RED CELL DISTRIBUTION WIDTH 12.9 % (11.0-15.5); WHITE BLOOD COUNT (AUTO) 6.8 K/uL (4.8-10.8)
[2022-04-22 06:52] LABS: ALBUMIN 2.2 g/dL (3.5-5.0); CREATININE 2.4 mg/dL (0.5-1.5); MAGNESIUM 1.5 mg/dL (1.80-2.40); PHOSPHORUS 2.9 mg/dL (2.5-4.9); POTASSIUM 3.7 mmol/L (3.5-5.1); TOTAL PROTEIN, SERUM 6.1 g/dL (6.0-8.3)
[2022-04-22 08:05] VITALS: BP 150/78
[2022-04-22] MEDS: METOPROLOL TARTRATE 25 MG TAB PO SCH (08:51)
[2022-04-22] MEDS: AMLODIPINE 5 MG TAB PO SCH (08:51)
[2022-04-22] MEDS: ZOSYN 3.375GM +NS 50ML IV SCH (09:00)
[2022-04-22] MEDS: PANTOPRAZOLE 40 MG/VIAL IVP SCH (09:00)
[2022-04-22] MEDS: ENOXAPARIN SODIUM 30 MG/0.3 ML SQ SCH (09:00)
[2022-04-22 12:14] VITALS: BP 153/70
[2022-04-22] MEDS: MAGNESIUM 2GM PREMIX 50ML 50 ML IV PRN ×2 (12:41→15:43)
[2022-04-22 16:04] VITALS: BP 163/79
== END 2022-04-22 18:30 | disposition home or self-care (01) | DRG 444 ==
LOC: EDH 09:16 → EDHIP 11:01 → 2CH 17:30 → 3AH 04-19 13:58
PROVIDERS: ADMIT Internal Medicine Critical Care Medicine; ATTEND Internal Medicine Critical Care Medicine
PROC: 0FC98ZZ Extirpation of Matter from Common Bile Duct, Via Natural or Artificial Opening Endoscopic (ICD-10-PCS; principal; 2022-04-20)
PROC: BF131ZZ Fluoroscopy of Gallbladder and Bile Ducts using Low Osmolar Contrast (ICD-10-PCS; 2022-04-20)
DX: K80.71 Calculus of gallbladder and bile duct without cholecystitis with obstruction (principal); K85.10 Biliary acute pancreatitis without necrosis or infection; I13.0 Hypertensive heart and chronic kidney disease with heart failure and stage 1 through stage 4 chronic kidney disease, or unspecified chronic kidney disease; N17.9 Acute kidney failure, unspecified; I16.1 Hypertensive emergency; N18.4 Chronic kidney disease, stage 4 (severe); N39.0 Urinary tract infection, site not specified; Z20.822 Contact with and (suspected) exposure to COVID-19; N52.9 Male erectile dysfunction, unspecified; I25.10 Atherosclerotic heart disease of native coronary artery without angina pectoris; L40.9 Psoriasis, unspecified; E11.22 Type 2 diabetes mellitus with diabetic chronic kidney disease; E11.65 Type 2 diabetes mellitus with hyperglycemia; E78.00 Pure hypercholesterolemia, unspecified; I50.9 Heart failure, unspecified; Z86.16 Personal history of COVID-19; Z86.73 Personal history of transient ischemic attack (TIA), and cerebral infarction without residual deficits; Z90.49 Acquired absence of other specified parts of digestive tract; Z95.5 Presence of coronary angioplasty implant and graft; M47.815 Spondylosis without myelopathy or radiculopathy, thoracolumbar region
CPT/HCPCS: 36415; 43262; 43264; 71045; 74176; 74181; 74330; 76705; 80048; 80053; 81001; 82150; 82550; 82948; 83036; 83690; 83735; 83874; 84100; 84145; 84478; 84484; 85025; 85027; 85610; 85730; 87088; 87635; 87804; 93005; 93306; C1769; C1773; C9113; G0378; J0330; J1650; J2250; J2270; J2405; J2543; J2704; J3010; J3475; J3490; J7030; J7050; J7120; Q9967

== ENCOUNTER → 2022-05-19 | Outpatient (CLI) | payer OTHER ==
[~2022-05-19] MED LIST changes: -AMLO-257 PO; -GLYC2TAB21 PO; -METF-890 PO; -PIOG15TA66 PO
[2022-05-19 13:09] LABS: CREATININE 2.4 mg/dL (0.5-1.5); POTASSIUM 4.8 mmol/L (3.5-5.1)
== END | disposition home or self-care (01) ==
LOC: LAB 08:09
PROVIDERS: ATTEND Internal Medicine Cardiovascular Disease
DX: I10 Essential (primary) hypertension (principal); E78.5 Hyperlipidemia, unspecified
CPT/HCPCS: 36415; 80048; 80061

== ENCOUNTER → 2022-06-06 | Outpatient (CLI) | payer OTHER | END | disposition home or self-care (01) | LOC: RAH 10:13 | PROVIDERS: ATTEND Urology | DX: N28.1 Cyst of kidney, acquired (principal); N32.89 Other specified disorders of bladder; N28.89 Other specified disorders of kidney and ureter; R31.29 Other microscopic hematuria | CPT/HCPCS: 76770 ==

== ENCOUNTER → 2022-07-12 | Outpatient (CLI) | payer OTHER | END | disposition home or self-care (01) | LOC: SHCH 08:53 | PROVIDERS: ATTEND Internal Medicine Cardiovascular Disease | DX: I07.1 Rheumatic tricuspid insufficiency (principal); R94.31 Abnormal electrocardiogram [ECG] [EKG] | CPT/HCPCS: 93306 ==

== ENCOUNTER → 2022-08-25 | Outpatient (CLI) | payer OTHER ==
[2022-08-25 10:01] LABS: ALBUMIN 3.3 g/dL (3.5-5.0); CREATININE 2.9 mg/dL (0.5-1.5); POTASSIUM 5.8 mmol/L (3.5-5.1)
== END | disposition home or self-care (01) ==
LOC: LAB 09:04
PROVIDERS: ATTEND Internal Medicine Gastroenterology
DX: K80.50 Calculus of bile duct without cholangitis or cholecystitis without obstruction (principal)
CPT/HCPCS: 36415; 80053

== ENCOUNTER → 2022-09-09 | Outpatient (CLI) | payer OTHER | END | disposition home or self-care (01) | LOC: RAH 08:52 | PROVIDERS: ATTEND Internal Medicine Gastroenterology | DX: K80.20 Calculus of gallbladder without cholecystitis without obstruction (principal); K85.80 Other acute pancreatitis without necrosis or infection | CPT/HCPCS: 74150 ==

== ENCOUNTER → 2022-11-25 | Outpatient (CLI) | payer OTHER ==
[~2022-11-25] MED LIST changes: -LOSA100T58 PO; +LOSA100T59 PO
== END | disposition home or self-care (01) ==
LOC: RAH 09:39
PROVIDERS: ATTEND Urology
DX: N20.0 Calculus of kidney (principal)
CPT/HCPCS: 74176

== ENCOUNTER 2023-02-04 10:36 | Emergency (ER) | payer OTHER ==
[~2023-02-04] VITALS: Ht 177.8 cm; Wt 88.5 kg
[2023-02-04 12:08] LABS: APPEARANCE,URINE CLOUDY (CLEAR); BILIRUBIN,URINE NEGATIVE (NEGATIVE); COLOR,URINE YELLOW (YELLOW); GLUCOSE, URINE (UA) 100 mg/dL (NEGATIVE); KETONES,URINE NEGATIVE (NEGATIVE); LEUKOCYTE ESTERASE ,URINE LARGE Leu/uL (NEGATIVE); NITRATE,URINE NEGATIVE (NEGATIVE); OCCULT BLOOD,URINE MODERATE (NEGATIVE); PH,URINE 5.5 (5.0-8.0); PROTEIN,URINE 100 mg/dL (NEGATIVE); UROBILINOGEN,URINE 0.2 mg/dL (0.2-1.0)
[2023-02-04 12:21] LABS: ADD UA MICROSCOPIC YES
[2023-02-04 12:27] LABS: INFLUENZA TYPE A Negative For Type A (NEGATIVE); INFLUENZA TYPE B Negative For Type B (NEGATIVE)
[2023-02-04 12:27] LABS: BACTERIA,URINE Moderate /HPF (None Seen)
[2023-02-04 12:29] LABS: RBC,URINE 0-1 /HPF (0-1); SQUAMOUS EPITHELIAL CELL,UR 0-2 /HPF (0-2)
[2023-02-04] MEDS ORDERED: CEFTRIAXONE 1G VIAL IM ONE (12:30)
[2023-02-04 12:37] LABS: SARS-CoV-2, RNA, NAAT NEGATIVE SARS CoV-2 (NEGATIVE)
[2023-02-04 12:38] LABS: RAPID GROUP A STREP negative (NEGATIVE)
[2023-02-04] MEDS ORDERED: CEPH500B PO (12:46)
[2023-02-04 13:12] VITALS: BP 124/74; PULSE 71; RESP 20; O2SAT 98
== END 2023-02-04 13:14 | disposition home or self-care (01) ==
LOC: EDH 10:36
DX: T83.091A Other mechanical complication of indwelling urethral catheter, initial encounter (principal); J06.9 Acute upper respiratory infection, unspecified; I10 Essential (primary) hypertension; E78.00 Pure hypercholesterolemia, unspecified; E11.9 Type 2 diabetes mellitus without complications; Z90.89 Acquired absence of other organs; Z90.49 Acquired absence of other specified parts of digestive tract; Z20.822 Contact with and (suspected) exposure to COVID-19
CPT/HCPCS: 99284; 71045; 99281; 87635; 87077; 87088; 87186; 87880; 87804 ×2; 81001; 96372; 51702; C9803; J0696

== ENCOUNTER 2023-02-04 19:34 | Emergency (ER) | payer OTHER ==
[~2023-02-04] VITALS: Ht 177.8 cm; Wt 89.4 kg
[~2023-02-04 19:34] MED LIST changes: +CEPH500B PO
[2023-02-04 20:33] VITALS: BP 138/84; PULSE 82; RESP 18; O2SAT 98
== END 2023-02-04 20:38 | disposition home or self-care (01) ==
LOC: EDH 19:34
DX: T83.9XXA Unspecified complication of genitourinary prosthetic device, implant and graft, initial encounter (principal); E11.9 Type 2 diabetes mellitus without complications; E78.00 Pure hypercholesterolemia, unspecified; I10 Essential (primary) hypertension; Z79.82 Long term (current) use of aspirin; Z79.899 Other long term (current) drug therapy; Z90.49 Acquired absence of other specified parts of digestive tract; Y69 Unspecified misadventure during surgical and medical care; Y92.89 Other specified places as the place of occurrence of the external cause
CPT/HCPCS: 99281

== ENCOUNTER → 2023-02-09 | Outpatient (CLI) | payer OTHER | END | disposition home or self-care (01) | LOC: RAH 11:30 | PROVIDERS: ATTEND Urology | DX: K80.20 Calculus of gallbladder without cholecystitis without obstruction (principal); N40.1 Benign prostatic hyperplasia with lower urinary tract symptoms; R39.14 Feeling of incomplete bladder emptying; M47.815 Spondylosis without myelopathy or radiculopathy, thoracolumbar region; K57.90 Diverticulosis of intestine, part unspecified, without perforation or abscess without bleeding; I70.0 Atherosclerosis of aorta | CPT/HCPCS: 74176 ==

== ENCOUNTER → 2023-07-21 | Outpatient (CLI) | payer OTHER | END | disposition home or self-care (01) | LOC: SHCH 12:33 | PROVIDERS: ATTEND Internal Medicine Cardiovascular Disease | DX: Z01.810 Encounter for preprocedural cardiovascular examination (principal); I10 Essential (primary) hypertension; I25.5 Ischemic cardiomyopathy; I25.10 Atherosclerotic heart disease of native coronary artery without angina pectoris | CPT/HCPCS: 93306 ==

== ENCOUNTER → 2023-07-24 | Outpatient (CLI) | payer OTHER ==
[2023-07-24] MEDS: REGADENOSON 0.4 MG/5 ML PF SYG IVP ONE (15:18)
== END | disposition home or self-care (01) ==
LOC: SHCH 08:01
PROVIDERS: ATTEND Internal Medicine Cardiovascular Disease
DX: I51.7 Cardiomegaly (principal); I25.10 Atherosclerotic heart disease of native coronary artery without angina pectoris; I25.5 Ischemic cardiomyopathy
CPT/HCPCS: 78452; 93017; J2785; A9500 ×2; 96374

== ENCOUNTER → 2025-04-21 | Outpatient (CLI) | payer OTHER ==
[~2025-04-21] MED LIST changes: +APIX5TAB PO; -ASPI-556 PO; +ATOR40TA69 PO; -ATOR40TA71 PO; +BUME1TAB6 PO; -CEPH500B PO; +CLOP-31 PO; -LOSA100T59 PO; -METO25TA6 PO; -SILD20TA14 PO; +TAMS-55 PO; +TRAZ-253 PO
--- NOTE | 2025-04-21 18:41 | HMCIMG ---
EXAM: US Retroperitoneum, Renal CLINICAL HISTORY: Microscopic hematuria TECHNIQUE: Real-time ultrasound of the retroperitoneum with image documentation. COMPARISON: None provided. FINDINGS: RIGHT KIDNEY: Measures 8.7 ??? 4.4 ??? 4.6 cm. Normal overall renal contour. Small simple cortical cyst measuring 11 ??? 8 ??? 8 mm. No renal calculus. No hydronephrosis. LEFT KIDNEY: Measures 8.2 ??? 4.5 ??? 4.2 cm. Normal echotexture and contour. No mass, calculus, or hydronephrosis. BLADDER: Wall thickness 4 mm. Mobile intraluminal debris present. Pre-void volume 362 cm???. Post-void residual volume 190 cm???, representing significant incomplete bladder emptying. PROSTATE (as visualized): Volume 23 cm???, within normal limits for age. MISCELLANEOUS: No additional abnormality detected in the retroperitoneum. IMPRESSION: * Right renal cortical cyst (11 ??? 8 ??? 8 mm); no hydronephrosis or calculus. * Significant post-void residual urinary volume with mobile bladder debris, suggesting incomplete bladder emptying???correlate for outflow obstruction or infection. * Left kidney normal. Prostate size normal. /Anna
== END | disposition home or self-care (01) ==
LOC: RAH 09:46
PROVIDERS: ATTEND Urology
DX: N28.1 Cyst of kidney, acquired (principal); R31.29 Other microscopic hematuria
CPT/HCPCS: 76770